=== PATIENT | female | born 1980 | race Caucasian/White ===

== ENCOUNTER 2024-02-03 17:55 | Emergency (ER) | payer BC ==
[2024-02-03] MEDS: Acetaminophen 500 MG Tab PO ONE (20:28)
[2024-02-03] MEDS: Ibuprofen 600 MG Tab PO ONE (20:29)
== END 2024-02-03 22:24 | disposition home or self-care (01) ==
LOC: MW.ED 17:55
DX: S89.91XA Unspecified injury of right lower leg, initial encounter (principal); Z79.899 Other long term (current) drug therapy; Z88.8 Allergy status to other drugs, medicaments and biological substances; Z88.2 Allergy status to sulfonamides; X50.1XXA Overexertion from prolonged static or awkward postures, initial encounter
CPT/HCPCS: 73562; 99283; A9270